=== PATIENT | female | born 1955 | race Caucasian/White ===

== ENCOUNTER → 2021-09-27 | Emergency (ER) | payer OTHER ==
[~2021-09-27] VITALS: Ht 172.7 cm; Wt 65.8 kg
[~2021-09-27] MED LIST: HYDR-3976 PO; HYDROCODONE/APAP 5/325MG TABLET ONE; HYDROCODONE/APAP 5/325MG TABLET PO ONE; HYDROCODONE/APAP 7.5/325MG 1 EACH TABLET PO ONE; UNK PAIN MED
--- NOTE | 2021-09-27 10:50 | NUR ---
The patient bibs for c/o left elbow pain s/p slipped and fall x 4 days ago 02/10 ps. Denies pain denies having any numbness/tingling in the extremity. The patient is able to move fingers. Will continue to monitor the patient.
[2021-09-27 13:13] VITALS: BP 136/68
--- NOTE | 2021-09-27 13:13 | NUR ---
Patient discharged to home in stable condition. Rx,Written and verbal after care instructions given. Patient verbalizes understanding of instruction.
== END | disposition home or self-care (01) ==
LOC: ER 10:38
DX: S53.402A Unspecified sprain of left elbow, initial encounter (principal); S40.011A Contusion of right shoulder, initial encounter; G89.29 Other chronic pain; W01.0XXA Fall on same level from slipping, tripping and stumbling without subsequent striking against object, initial encounter; Y93.89 Activity, other specified; Y92.89 Other specified places as the place of occurrence of the external cause; Y99.8 Other external cause status
CPT/HCPCS: 73030-TC; 73080-TC

== ENCOUNTER 2024-05-15 07:59 | Emergency (ER) | payer OTHER ==
[~2024-05-15] VITALS: Ht 170.2 cm; Wt 49.9 kg
[~2024-05-15 07:59] MED LIST changes: -HYDROCODONE/APAP 5/325MG TABLET ONE; -HYDROCODONE/APAP 5/325MG TABLET PO ONE; -HYDROCODONE/APAP 7.5/325MG 1 EACH TABLET PO ONE
[2024-05-15] MEDS: TDAP [DIPH/PERTUSSIS/TET] 0.5 ML VIAL IM ONE (08:30)
[2024-05-15] MEDS ORDERED: BACI/NEOM/POLY B OINT PKT 1 UDPKT PACKET ONE (08:42)
[2024-05-15] MEDS ORDERED: TDAP [DIPH/PERTUSSIS/TET] 0.5 ML VIAL IM ONE (08:43)
[2024-05-15] MEDS: BACI/NEOM/POLY B OINT PKT 1 UDPKT PACKET TP ONE (08:56)
[2024-05-15] MEDS ORDERED: IBUP-1955 PO (09:14)
[2024-05-15] MEDS ORDERED: BENZOIN COMPOUND TINCT 60 ML BOTTLE ONE (10:26)
[2024-05-15 11:34] VITALS: BP 120/84; TEMP 98.5; O2SAT 98
== END 2024-05-15 11:15 | disposition home or self-care (01) ==
LOC: ER 08:06
DX: S01.81XA Laceration without foreign body of other part of head, initial encounter (principal); S70.02XA Contusion of left hip, initial encounter; G89.29 Other chronic pain; Z86.59 Personal history of other mental and behavioral disorders; W01.0XXA Fall on same level from slipping, tripping and stumbling without subsequent striking against object, initial encounter; Y93.89 Activity, other specified; Y92.89 Other specified places as the place of occurrence of the external cause; Y99.8 Other external cause status
CPT/HCPCS: 70450-TC; 71045-TC; 73502; 90715